=== PATIENT | male | born 1955 | race Caucasian/White ===

== ENCOUNTER 2021-07-16 08:40 | Outpatient (CLI) | payer MEDICARE, BC | END 2021-07-16 08:41 | disposition home or self-care (01) | LOC: CSHCT 08:40 | PROVIDERS: ATTEND Neurological Surgery | DX: M54.5 Low back pain (principal); M54.12 Radiculopathy, cervical region; Z98.890 Other specified postprocedural states; M47.816 Spondylosis without myelopathy or radiculopathy, lumbar region; M47.812 Spondylosis without myelopathy or radiculopathy, cervical region | CPT/HCPCS: 72131; 72156; 82565 ==

== ENCOUNTER 2022-08-19 12:59 | Outpatient (CLI) | payer MEDICARE, BC | END 2022-08-19 13:00 | disposition home or self-care (01) | LOC: CSHRAD 12:59 | PROVIDERS: ATTEND Neurological Surgery | DX: R13.10 Dysphagia, unspecified (principal) | CPT/HCPCS: 72040 ==

== ENCOUNTER 2022-09-17 08:24 | Outpatient (CLI) | payer MEDICARE, BC | END 2022-09-17 08:25 | disposition home or self-care (01) | LOC: CSHRAD 08:24 | PROVIDERS: ATTEND Otolaryngology Plastic Surgery within the Head & Neck | DX: K22.5 Diverticulum of esophagus, acquired (principal); K21.9 Gastro-esophageal reflux disease without esophagitis; K44.9 Diaphragmatic hernia without obstruction or gangrene | CPT/HCPCS: 74220 ==

== ENCOUNTER 2024-04-13 08:43 | Outpatient (CLI) | payer MEDICARE, BC ==
[2024-04-13] MEDS ORDERED: Iopamidol 300 61% 100 ML VIAL FS ONE (12:44)
== END 2024-04-13 08:44 | disposition home or self-care (01) ==
LOC: CSHCT 08:43
PROVIDERS: ATTEND Dentist Oral and Maxillofacial Surgery
DX: K11.8 Other diseases of salivary glands (principal); Z98.890 Other specified postprocedural states; R23.4 Changes in skin texture
CPT/HCPCS: 70487; 82565; Q9967